=== PATIENT | male | born 1980 | race Caucasian/White ===

== ENCOUNTER 2018-09-21 04:26 | Emergency (ER) | payer MEDICAID ==
[~2018-09-21] VITALS: Ht 185.4 cm; Wt 113.6 kg
[2018-09-21 04:28] VITALS: BP 121/100
[2018-09-21] MEDS ORDERED: AMOX-580 PO (04:33)
[2018-09-21] MEDS ORDERED: LIDOcaine 1% w/epiNEPHrine 1:200,000 30ml vial IM ONE (04:35)
[2018-09-21] MEDS ORDERED: amox tr/potassium clavulanate 875/125mg TAB PO STA (05:04)
[2018-09-21] MEDS ORDERED: bacitracin 15gm ointment TP STA (05:08)
[2018-09-21] MEDS ORDERED: acetaminophen 325mg tablet PO STA (05:12)
== END 2018-09-21 05:48 ==
LOC: ER 04:27
DX: S51.832A Puncture wound without foreign body of left forearm, initial encounter (principal); S51.852A Open bite of left forearm, initial encounter; W54.0XXA Bitten by dog, initial encounter; Y93.89 Activity, other specified; Y92.89 Other specified places as the place of occurrence of the external cause; Y99.9 Unspecified external cause status
CPT/HCPCS: 12002; 73090; 99284; J3490